=== PATIENT | female | born 1975 | race Caucasian/White ===

== ENCOUNTER 2016-09-07 11:57 | Day surgery (SDC) | payer OTHER ==
[~2016-09-07] VITALS: Ht 165.1 cm; Wt 113.0 kg
--- NOTE | 2016-09-07 07:00 | PCM.HPANE ---
Patient Data Surgeon Admitting Provider: Attending Provider:Anne Cosby MD Primary Care Physician:Berto Fang MD Other Provider:Mayuri Marsingham Anesthesia Reason for Visit Constipation, Right Upper Quadrant Pain Ht/WT & BMI Body Mass Index Allergies Coded Allergies: Penicillins (Verified Allergy, Unknown, rash, 09/07/16) Past Anesthesia History Anesthesia History: Denies:: Anesthesia Reactions Diabetes History Hx Diabetes?: No Medications Reported Medications Omeprazole 40 Mg Capsule.dr40 Mg PO DAILY Ref 0 09/06/16 Citalopram 10 Mg Tlrsfx03 Mg PO DAILY Ref 0 02/09/16 Estradiol 0.5 Mg Tablet0.5 Mg PO DAILY 02/09/16 Cholecalciferol (Vitamin D3) (Vitamin D3)1,000 Unit Tab.chew1,000 Unit PO DAILY 02/07/16 Cyanocobalamin (Vitamin B12)500 Mcg Tablet1,000 Mcg PO DAILY 02/07/16 Triamterene/HCTZ 37.5-25 mg 1 Each Capsule1 Capsule PO DAILY Ref 0 02/07/16 Albuterol HFA (Proair HFA)8.5 Gm Hfa.aer.ad2 Puffs INHALATION Q4H PRN For Shortness of Breath #1 INHALER 02/07/16 Gabapentin 100 Mg [id number] Mg PO HS 30 Days Ref 0 02/07/16 Diltiazem ER 120 Mg Capsule.er120 Mg PO DAILY Ref 0 02/07/16 Calcium Carbonate/Vitamin D3 (Calcium 600 + Vit D Tablet)1 Each Tablet1 Each PO DAILY 02/07/16 Discontinued Reported Medications Fluticasone Propionate (Fluticasone Propionate Nasal)16 Gm [place].susp1 [place] NS BID #16 GM Ref 0 09/06/16 Ranitidine (Zantac)150 Mg Jqtjvf635 Mg PO BID 02/07/16 History HEENT History: Positive for:: Sinus Problem (sinus congestion seasonal) Denies:: Hearing Problem Hx of Heart Problems?: Yes Cardiovascular History: Positive for:: Hypertension Denies:: AICD Heart Murmur Irregular Heartbeat Pacemaker Hx of Respiratory Problem?: Yes Respiratory History: Positive for:: Asthma Denies:: Oxygen Administration Use of C-PAP Machine Hx Neurologic Problems?: No Hx of GI Problems?: Yes Gastrointestinal History: Denies:: Gastroesphageal Reflux Gastrointestinal Bleeding Heartburn Hepatitis Hx of Problems?: No Female Hx: Positive for:: Currently Skin History: Denies:: History Skin Disorders? Pressure Ulcers Hx Musculoskeletal Problems?: Yes Hx of Psycho/Social Problems?: Yes Psycho Social History: Positive for:: Anxiety Hx Depression Hx Surgeries?: Yes (Hysterectomy, laparoscopy-oopherectomy) Hx Any Other Health Problems?: Yes Other History: Denies:: Cancer Thyroid Disease Hx Diabetes: No Hx Alcohol Use: YesHx Substance Use: No Smoking Status: Former Smoker Have You Smoked inLast 12 mo: No Stop/Bang Risk Assessment Category Category 1A: Patient has history of documented sleep apnea, and HAS NOT received any narcotic, sedative or anesthesia administration during this stay. Category 1B: Patient has history of documented sleep apnea, and HAS received any narcotic , sedative or anesthesia administration during this stay Category 2: Patient has SUSPECTED Obstructive Sleep Apnea, and HAS received any narcotic , sedative or anesthesia administration during this stay. Category 3: Patient has SUSPECTED Obstructive Sleep Apnea and HAS NOT received narcotic, sedative or anesthesia administration during this stay. Category 4: Outpatient in Procedural Areas with known sleep apnea or who screen positive for High Risk via the STOP/BANG questionnaire. Exam Exam General Appearance: Alert, Oriented X3, Cooperative HEENT/AIRWAY: MP 2, Neck Movement (from, tHICK), Mouth Opening (wnl) Lungs: Clear to Auscultation Heart: Exam Unremarkable Plan Impression Patient chart reviewed, patient interviewed and anesthestic plan with risks, benefits, and alternatives discussed, and informed consent obtained. NPO Status: NOTHING PAST MIDNIGHT ASA Physical Status: ASA3 Severe Disease Anesthetic Plan: GA Bene/Risks/Altern/Consents: Yes HP Complete Prior to Induction: Yes Yosef Johnson MD Sep 07, 2016 07:00
[~2016-09-07 11:57] MED LIST: ALBU8.5H2 INHALATION; CALC-243 PO; CHOL10008 PO; CITA10TA9 PO; CYAN500 PO; DILT120C86 PO; ESTR0.5T PO; FLUT16SP NS; GABA-500 PO; Lactated Ringer's 1,000 ML IV ONE; OMEP40CA36 PO; RANI150T11 PO; TRIA1CAP5 PO
[2016-09-07] MEDS ORDERED: fentaNYL-PF 50 mCg/mL 2 mL Inj ONE (11:58)
[2016-09-07] MEDS ORDERED: Propofol 10,000 mCg/mL 20 mL Inj ONE (11:58)
[2016-09-07 12:26] VITALS: BP 143/78; PULSE 62; RESP 16; O2SAT 97
[2016-09-07] MEDS ORDERED: Lactated Ringer's 1,000 ML IV SCH (13:04)
[2016-09-07] MEDS ORDERED: Ondansetron 2 mg/mL 2 mL Inj IVPUSH PRN (13:05)
[2016-09-07] MEDS ORDERED: MetoCLOpramide 5 mg/mL 2 mL Inj IVPUSH PRN (13:05)
[2016-09-07 13:47] VITALS: BP 138/85; PULSE 66; RESP 14; O2SAT 98
[2016-09-07 13:55] VITALS: BP 118/69; PULSE 67; RESP 18; O2SAT 97
[2016-09-07 14:05] VITALS: BP 113/73; PULSE 64; RESP 14; O2SAT 97
--- NOTE | 2016-09-07 14:12 | ENDO ---
[address] [address] ENDOSCOPY PROCEDURE PATIENT: CRISTA GARCIA : 1975 MR#: [id number] ADMIT: 09/07/2016 JOB ID: [id number] DATE: 09/07/2016 PROCEDURE: Esophagogastroduodenoscopy. INDICATION: Right upper quadrant pain. The patient's ASA classification, Mallampati score, and medications as per Dr. Yosef Johnson' anesthesia report. INSTRUMENT USED: GIF H 180 J. PROCEDURE DETAILS: After informed consent was obtained, the patient was brought into the GI suite, where she was placed on oxygen via nasal cannula and monitored with continuous pulse oximeter, telemetry and blood pressure monitoring. A time-out was performed. Then, she was placed in the left lateral decubitus position. A bite block was placed. Medications were then administered for sedation. A bite block was placed. The standard EGD scope was then inserted through the bite block and advanced under direct visualization to the second portion of the duodenum without difficulty. FINDINGS: 1. Normal appearing duodenal bulb, first and second portion. Multiple random biopsies were obtained. 2. Normal-appearing pylorus. In the antrum there were three nodules that measured approximately 3-5 mm each. Three nodules were all biopsied. 3. Multiple random biopsies were obtained throughout the antrum and body of the stomach. 4. Retroflexed views in the gastric body revealed a normal-appearing cardia and fundus. 5. The GE junction was at approximately 39 cm and appeared regular. 6. Normal appearing esophagus. IMPRESSION: 1. Three antral nodules. 2. Mild gastritis. 3. Otherwise normal examination to second portion of the duodenum. RECOMMENDATIONS: 1. Await biopsy results. 2. Proceed to colonoscopy. PROCEDURE PERFORMED: Colonoscopy. INDICATION: Constipation. Please see above for ASA classification, Mallampati score, and medications. INSTRUMENT USED: PCF H 180 AL. PREPARATION QUALITY: Was good. PROCEDURE DETAILS: After completion of the EGD examination, a digital rectal examination was performed, which was unremarkable. The colonoscope was then inserted into the rectum and advanced under direct visualization to the cecum, which was identified by the presence of the ileocecal valve and appendiceal orifice. Once the cecum was reached, the colonoscope was then withdrawn back into the rectum as the mucosa and lumen were examined. In the rectum, retroflexion was performed. Following retroflexion, remaining air in the rectum was suctioned and procedure was completed. We attempted to intubate the terminal ileum. However, we were unsuccessful as the colon was quite tortuous. FINDINGS: 1. Normal examination from rectum to cecum. 2. Retroflexed views in the rectum revealed small-to- moderate-sized internal hemorrhoids. IMPRESSION: Uvaal-gg-lreuxjcn internal hemorrhoids. Otherwise normal examination from rectum to cecum. RECOMMENDATIONS: 1. Follow up in GI clinic in 2-4 weeks. 2. Recommend MiraLAX daily. COMPLICATIONS: None. ESTIMATED BLOOD LOSS: 0.
--- NOTE | 2016-09-07 14:15 | PCM.ANEP1 ---
Post Anesthesia Phase 1 PACU Phase 1 Assessment Vital Signs Vital Signs Date Time Temp Pulse Resp B/P Pulse Ox O2 Delivery O2 Flow Rate FiO2 09/07/16 14:05 64 14 113/73 97 Room Air 09/07/16 13:55 67 18 118/69 97 Room Air 09/07/16 13:47 66 14 138/85 98 Room Air 09/07/16 12:26 36.9 62 16 143/78 97 Room Air Anesthetic Administered: GA Level of Alertness: Awake, talking CHÁVEZ's with Equal Strength: Yes Pain: No Nausea or Vomiting: No Oxygen Delivery: Room Air Lungs: Normal Air Movement Yosef Johnson MD Sep 07, 2016 14:15
--- NOTE | 2016-09-07 14:15 | PCM.ANEP2 ---
Post Anesthesia Evaluation ASA/CMS Post Anesthesia VS in Patient's Normal Range?: Yes Resp Stable; Airway Patent?: Yes CV Function & Hydration Stable: Yes Mental Status Recovered?: Yes Pain control Satisfactory?: Yes N/V Control Satisfactory?: Yes Yosef Johnson MD Sep 07, 2016 14:15
[2016-09-07 14:21] VITALS: BP 123/78; PULSE 68; RESP 14; O2SAT 94
--- NOTE | 2016-09-11 12:18 | PATH ---
SURGICAL PATHOLOGY Attending Physician:Lance Hendricks CASE STATUS: Signed Out PATIENT NAME: CRISTA GARCIA PID: [id number] : 1975 DATE COLLECTED:09/07/2016 00:00 SPECIMEN: 1: Duodenum, Biopsy 2: Stomach, Antrum, Biopsy 3: Gastric, Biopsy CLINICAL HISTORY: A: DUODENAL BIOPSY B: ANTRAL NODULE BIOPSY C: GASTRIC BIOPSY FINAL DIAGNOSIS: 1.DUODENAL BIOPSY: CHANGES OF MILD CHRONIC DUODENITIS WITH FOCAL AREAS OF FOVEOLAR METAPLASIA. Negative for evidence of celiac disease. Negative for dysplasia and malignancy. 2.ANTRAL NODULE BIOPSY: FRAGMENTS OF ANTRAL/PYLORIC MUCOSA WITH MILD NONSPECIFIC REACTIVE CHANGES. Negative for significant inflammation. Negative for evidence of Helicobacter. Negative for dysplasia and malignancy. 3.GASTRIC BIOPSY: MUCOSAL HYPEREMIA WITHOUT ASSOCIATED SIGNIFICANT INFLAMMATION INVOLVING FUNDIC MUCOSA. Negative for evidence of Helicobacter. Negative for intestinal metaplasia. Negative for dysplasia and malignancy. ICD10 code K29.80 GROSS DESCRIPTION: The specimen is received in three formalin filled containers labeled with the patient's name. 1). The specimen is sublabeled "duodenum" and consists of 5 portions of tissue which aggregate to 0.4 x 0.4 x 0.3 CM. The specimen is entirely submitted in cassette 1A. 2). The specimen is sublabeled "antral nodule" and consists of 2 portions of tissue which aggregate to 0.4 x 0.3 x 0.2 CM. The specimen is entirely submitted in cassette 2A. 3). The specimen is sublabeled "gastric" and consists of 2 fragments of tissue which aggregate to 0.4 x 0.4 x 0.2 CM. The specimen is entirely submitted in cassette 3A. 09/08/2016 [facility] MICRO DESCRIPTION: See diagnosis. ICD-9 CODES: CPT CODES: 1: 70258 2: 87432 3: 80236 Electronically Signed Out Reese Pabon MD [facility] Pathology [facility] [address], [place] [address] Technical component performed at [facility], [facility] [address], [place], [address]
== END 2016-09-07 23:59 | disposition home or self-care (01) ==
LOC: END 11:57
PROVIDERS: ATTEND Internal Medicine Gastroenterology
DX: K31.89 Other diseases of stomach and duodenum (principal); K29.80 Duodenitis without bleeding; K29.70 Gastritis, unspecified, without bleeding; K64.8 Other hemorrhoids; K59.00 Constipation, unspecified; I10 Essential (primary) hypertension
CPT/HCPCS: 43239; 45378; J2250; J7120